=== PATIENT | female | born 1945 | race Caucasian/White ===

== ENCOUNTER 2016-12-20 11:14 | Emergency (ER) | payer MEDICARE, BC ==
--- NOTE | 2016-12-20 11:37 | EDM.PDOC ---
ED HPI RENAL/ - General Chief Complaint: Genitourinary Problem Stated Complaint: POSSIBLE UTI Time Seen by Provider: 12/20/16 11:36 Source of Information: Reports: Patient History Limitations: Reports: No limitations - History of Present Illness INITIAL COMMENTS - FREE TEXT/NARRATIVE: History of present illness: [71-year-old female presenting with acute onset of frequency and urgency with voiding. Patient indicates she feels she has a UTI as she has had in the past and would like to be tested for the same.] Review of systems: As per history of present illness and below otherwise all systems reviewed and negative. Past medical history: As per history of present illness and as reviewed below otherwise noncontributory. Surgical history: As per history of present illness and as reviewed below otherwise noncontributory. Social history: No reported history of drug or alcohol abuse. Family history: As per history of present illness and as reviewed below otherwise noncontributory. Physical exam: HEENT: Atraumatic, normocephalic, pupils reactive, negative for conjunctival pallor or scleral icterus, mucous membranes moist, throat clear, neck supple, nontender, trachea midline. Lungs: Clear to auscultation, breath sounds equal bilaterally, chest nontender. Heart: S1S2, regular, negative for clicks, rubs, or JVD. Abdomen: Soft, nondistended, nontender. Negative for masses or hepatosplenomegaly. Negative for costovertebral tenderness. Pelvis: Stable nontender. Genitourinary: Deferred. Rectal: Deferred. Extremities: Atraumatic, negative for cords or calf pain. Neurovascular unremarkable. Neuro: Awake, alert, oriented. Cranial nerves II through XII unremarkable. Cerebellum unremarkable. Motor and sensory unremarkable throughout. Exam nonfocal. Global assessment as benign save concerns as noted in the history of present illness. UA with nathalie bacteria and positive for UTI. Diagnostics: [UA] Therapeutics: [] Impression: [UTI] Plan: [Macrobid] Definitive disposition and diagnosis as appropriate pending reevaluation and review of above. - Related Data Allergies/ADRs: Allergies Allergy/AdvReac Type Severity Reaction Status Date / Time amoxicillin [Amoxicillin] Allergy Rash Verified 12/20/16 11:24 procaine HCl [From Novocain] Allergy Rash Verified 12/20/16 11:24 Sulfa (Sulfonamide Allergy Rash Verified 12/20/16 11:24 Antibiotics) Home Meds: Home Meds Celecoxib [CeleBREX] 1 tab PO DAILY 08/12/14 [History] metFORMIN [Glucophage XR] 1 tab PO BID 08/12/14 [History] Nitrofurantoin Monohyd/M-Cryst [Macrobid 100 mg Capsule] 100 mg PO BID #20 capsule 12/20/16 [Rx] Past Medical History HEENT History: Reports: Impaired vision Cardiovascular History: Reports: High cholesterol, Hypertension Respiratory History: Reports: None Gastrointestinal History: Reports: None 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, recurrent 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 Musculoskeletal History: Reports: Other (see below) Other Musculoskeletal History: Carpal Tunnel Neurological History: Reports: Headaches, chronic, Vertigo Psychiatric History: Reports: Anxiety, Depression Endocrine/Metabolic History: Reports: Diabetes, type II Hematologic History: Reports: Other (see below) Other Hematologic History: "high iron" Immunologic History: Reports: None Oncologic (Cancer) History: Reports: None Dermatologic History: Reports: None - Infectious Disease History Infectious Disease History: Reports: Chicken pox - Past Surgical History Head Surgeries/Procedures: Reports: None Female Surgical History: Reports: Hysterectomy Musculoskeletal Surgical History: Reports: Carpal tunnel Social & Family History - Family History Family Medical History: Noncontributory - Tobacco Use Smoking Status *Q: Never Smoker Years of Tobacco use: 15 Used Tobacco, but Quit: Yes Month Tobacco Last Used: 1978 Second Hand Smoke Exposure: No - Alcohol Use Days Per Week of Alcohol Use: 0 - Recreational Drug Use Recreational Drug Use: Yes Drug Use in Last 12 Months: No Recreational Drug Type: Reports: Marijuana/Hashish Recreational Drug Use Frequency: Not Used In Over 3 Months ED ROS GENERAL - Review of Systems Review Of Systems: See Below (The history of present illness) ED EXAM, RENAL/ - Physical Exam Exam: See Below (See history of present illness) Course - Vital Signs Last Recorded V/S: Last Vital Signs Temp 36.0 C 12/20/16 11:22 Pulse 65 12/20/16 11:22 Resp 16 12/20/16 11:22 BP 148/61 H 12/20/16 11:22 Pulse Ox 96 12/20/16 11:22 - Orders/Labs/Meds Labs: Laboratory Tests 12/20/16 Range/Units 11:29 Urine Color YELLOW Urine Appearance CLEAR Urine pH 5.5 (5.0-8.0) Ur Specific [place] 1.025 (1.001-1.035) Urine Protein NEGATIVE (NEGATIVE) mg/dL Urine Glucose (UA) 250 H (NEGATIVE) mg/dL Urine Ketones NEGATIVE (NEGATIVE) mg/dL Urine Occult Blood LARGE H (NEGATIVE) Urine Nitrite POSITIVE H (NEGATIVE) Urine Bilirubin NEGATIVE (NEGATIVE) Urine Urobilinogen 0.2 (<2.0) EU/dL Ur Leukocyte Esterase LARGE (NEGATIVE) Urine RBC 4-8 (0-2/HPF) Urine WBC 65-70 (0-5/HPF) Ur Epithelial Cells FEW (NONE-FEW) Urine Bacteria 4+ H (NEGATIVE) Urine Mucus LIGHT (NONE-MOD) Departure - Departure Time of Disposition: 12:52 Disposition: Home, Self-Care 01 Condition: good Clinical Impression: UTI, Urinary tract infectious disease Clinical Impression: (Ruled Out): Lower urinary tract infectious disease, UTI Prescriptions: Nitrofurantoin Monohyd/M-Cryst [Macrobid 100 mg Capsule] 100 mg PO BID #20 capsule Instructions: Urinary Tract Infection, Adult, [id number] Forms: ED Department Discharge Additional Instructions: The following information is given to patients seen in the emergency department who are being discharged to home. This information is to outline your options for follow-up care. We provide all patients seen in our emergency department with a follow-up referral. The need for follow-up, as well as the timing and circumstances, are variable depending upon the specifics of your emergency department visit. If you don't have a primary care physician on staff, we will provide you with a referral. We always advise you to contact your personal physician following an emergency department visit to inform them of the circumstance of the visit and for follow-up with them and/or the need for any referrals to a consulting specialist. The emergency department will also refer you to a specialist when appropriate. This referral assures that you have the opportunity for follow-up care with a specialist. All of these measure are taken in an effort to provide you with optimal care, which includes your follow-up. Under all circumstances we always encourage you to contact your private physician who remains a resource for coordinating your care. When calling for follow-up care, please make the office aware that this follow-up is from your recent emergency room visit. If for any reason you are refused follow-up, please contact the [facility] Emergency Department at and asked to speak to the emergency department charge nurse. Take medication as directed Followup with primary care provider in one to 2 days Return to ED as needed as discussed
[2016-12-20 13:38] VITALS: BP 116/69
== END 2016-12-20 13:30 | disposition home or self-care (01) ==
LOC: MW.ED 11:14
DX: N39.0 Urinary tract infection, site not specified (principal); E11.9 Type 2 diabetes mellitus without complications; F41.9 Anxiety disorder, unspecified; F32.9 Major depressive disorder, single episode, unspecified; Z90.710 Acquired absence of both cervix and uterus; Z98.890 Other specified postprocedural states; Z79.899 Other long term (current) drug therapy; Z88.1 Allergy status to other antibiotic agents; Z88.2 Allergy status to sulfonamides; Z88.8 Allergy status to other drugs, medicaments and biological substances
CPT/HCPCS: 81001; 99283

== ENCOUNTER 2017-05-12 07:58 | Emergency (ER) | payer MEDICARE, BC ==
--- NOTE | 2017-05-12 08:29 | EDM.PDOC ---
ED HPI GENERAL MEDICAL PROBLEM - General Chief Complaint: Genitourinary Problem Stated Complaint: POSSIBLE UTI Time Seen by Provider: 05/12/17 08:15 - History of Present Illness INITIAL COMMENTS - FREE TEXT/NARRATIVE: HISTORY AND PHYSICAL: History of present illness: This is a 71-year-old female presenting to the emergency department complaining of urinary issues. She tells me for the past month now, she has been experiencing urinary urgency, intermittent burning on urination. She tells me that this past night she began to feel the chills. She denies any flank pain she denies any hematuria. She tells me that she has a history of multiple UTIs which have responded well to antibiotics. Review of systems: As per history of present illness and below otherwise all systems reviewed and negative. Past medical history: As per history of present illness and as reviewed below otherwise noncontributory. Surgical history: As per history of present illness and as reviewed below otherwise noncontributory. Social history: No reported history of drug or alcohol abuse. Family history: As per history of present illness and as reviewed below otherwise noncontributory. Physical exam: HEENT: Atraumatic, normocephalic, pupils reactive, negative for conjunctival pallor or scleral icterus, mucous membranes moist, throat clear, neck supple, nontender, trachea midline. Lungs: Clear to auscultation, breath sounds equal bilaterally, chest nontender. Heart: S1S2, regular, negative for clicks, rubs, or JVD. Abdomen: Soft, nondistended, nontender. Negative for masses or hepatosplenomegaly. Negative for costovertebral tenderness. Pelvis: Stable nontender. Genitourinary: Deferred. Rectal: Deferred. Extremities: Atraumatic, negative for cords or calf pain. Neurovascular unremarkable. Neuro: Awake, alert, oriented. Cranial nerves II through XII unremarkable. Cerebellum unremarkable. Motor and sensory unremarkable throughout. Exam nonfocal. Diagnostics: Urinalysis, urine culture Therapeutics: None Impression: Urinary tract infection Plan: Macrobid 100 mg by mouth twice a day 10 days #20 tabs. Patient is advised to follow-up with his primary care provider. - Related Data Allergies Allergy/AdvReac Type Severity Reaction Status Date / Time amoxicillin [Amoxicillin] Allergy Rash Verified 05/12/17 08:17 procaine HCl [From Novocain] Allergy Rash Verified 05/12/17 08:17 Sulfa (Sulfonamide Allergy Rash Verified 05/12/17 08:17 Antibiotics) Home Meds: Home Meds Celecoxib [CeleBREX] 1 tab PO DAILY 08/12/14 [History] metFORMIN [Glucophage XR] 1 tab PO BID 08/12/14 [History] Nitrofurantoin Monohyd/M-Cryst [Macrobid 100 mg Capsule] 100 mg PO BID #20 capsule 12/20/16 [Rx] Nitrofurantoin Monohyd/M-Cryst [Macrobid 100 mg Capsule] 100 mg PO BID 10 Days # 20 capsule 05/12/17 [Rx] Past Medical History HEENT History: Reports: Impaired Vision Cardiovascular History: Reports: High Cholesterol, Hypertension Respiratory History: Reports: None Gastrointestinal History: Reports: None 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, Recurrent 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 Musculoskeletal History: Reports: Other (See Below) Other Musculoskeletal History: Carpal Tunnel Neurological History: Reports: Headaches, Chronic, Vertigo Psychiatric History: Reports: Anxiety, Depression Endocrine/Metabolic History: Reports: Diabetes, Type II Hematologic History: Reports: Other (See Below) Other Hematologic History: "high iron" Immunologic History: Reports: None Oncologic (Cancer) History: Reports: None Dermatologic History: Reports: None - Infectious Disease History Infectious Disease History: Reports: MRSA - Past Surgical History Head Surgeries/Procedures: Reports: None Musculoskeletal Surgical History: Reports: Carpal Tunnel Social & Family History - Family History Family Medical History: Noncontributory - Tobacco Use Smoking Status *Q: Never Smoker Years of Tobacco use: 15 Used Tobacco, but Quit: Yes Month Tobacco Last Used: 1978 Second Hand Smoke Exposure: No - Alcohol Use Days Per Week of Alcohol Use: 0 - Recreational Drug Use Recreational Drug Use: No Drug Use in Last 12 Months: No Recreational Drug Type: Reports: Marijuana/Hashish Recreational Drug Use Frequency: Not Used In Over 3 Months ED ROS GENERAL - Review of Systems Review Of Systems: See Below (see dictation) ED EXAM, RENAL/ - Physical Exam Exam: See Below (See dictation) Course - Vital Signs Text/Narrative:: Patient was complaining of urinary issues, with a history of multiple UTIs. On urinalysis is found to have positive nitrites and WBCs indicating a possible urinary tract infection. Patient was ultimately discharged home on Macrobid for 10 days. Patient is advised to follow-up with primary care provider. Last Recorded V/S: Last Vital Signs Temp 97.0 C H 05/12/17 08:51 Pulse 64 05/12/17 08:51 Resp 20 05/12/17 08:51 BP 127/70 05/12/17 08:51 Pulse Ox 95 05/12/17 08:51 - Orders/Labs/Meds Orders: Active Orders 24 hr Category Date Time Status CULTURE URINE [RM] Stat Lab 05/12/17 08:03 Received Labs: Laboratory Tests 05/12/17 Range/Units 08:03 Urine Color YELLOW Urine Appearance SLT CLOUDY Urine pH 5.5 (5.0-8.0) Ur Specific [place] 1.020 (1.001-1.035) Urine Protein NEGATIVE (NEGATIVE) mg/dL Urine Glucose (UA) 250 H (NEGATIVE) mg/dL Urine Ketones NEGATIVE (NEGATIVE) mg/dL Urine Occult Blood LARGE H (NEGATIVE) Urine Nitrite POSITIVE H (NEGATIVE) Urine Bilirubin NEGATIVE (NEGATIVE) Urine Urobilinogen 0.2 (<2.0) EU/dL Ur Leukocyte Esterase LARGE (NEGATIVE) Urine RBC 6-10 (0-2/HPF) Urine WBC 45-50 (0-5/HPF) Ur Epithelial Cells FEW (NONE-FEW) Amorphous Sediment FEW (NEGATIVE) Urine Bacteria 2+ H (NEGATIVE) Urine Mucus FEW (NONE-MOD) Departure - Departure Time of Disposition: 08:36 Disposition: Home, Self-Care 01 Condition: Good Clinical Impression: Urinary tract infection - Discharge Information Prescriptions: Nitrofurantoin Monohyd/M-Cryst [Macrobid 100 mg Capsule] 100 mg PO BID 10 Days # 20 capsule Instructions: Urinary Tract Infection, Adult, [id number] Referrals: Seble Schwab NP [Nurse Practitioner] - Forms: ED Department Discharge
[2017-05-12 08:53] VITALS: BP 127/70
== END 2017-05-12 08:51 | disposition home or self-care (01) ==
LOC: MW.ED 07:58
DX: N39.0 Urinary tract infection, site not specified (principal); E78.00 Pure hypercholesterolemia, unspecified; I10 Essential (primary) hypertension; E11.9 Type 2 diabetes mellitus without complications; Z88.1 Allergy status to other antibiotic agents; Z88.2 Allergy status to sulfonamides; Z79.899 Other long term (current) drug therapy; Z79.84 Long term (current) use of oral hypoglycemic drugs
CPT/HCPCS: 81001; 87086; 87088; 87186; 99282; 99283

== ENCOUNTER 2017-12-01 08:31 | Emergency (ER) | payer BC, MEDICARE ==
--- NOTE | 2017-12-01 09:00 | EDM.PDOC ---
ED HPI GENERAL MEDICAL PROBLEM - General Chief Complaint: Genitourinary Problem Stated Complaint: ABDOMINAL PAIN Time Seen by Provider: 12/01/17 08:53 - History of Present Illness INITIAL COMMENTS - FREE TEXT/NARRATIVE: HISTORY AND PHYSICAL: History of present illness: Patient is a 72-year-old white female history non-insulin dependent diabetes who presents with concern of urinary tract infection she states she's had some frequency and discomfort urination she's had this problem intermittently she reports allergies to sulfa she denies fever chills nausea vomiting back pain or other concern Review of systems: As per history of present illness and below otherwise all systems reviewed and negative. Past medical history: As per history of present illness and as reviewed below otherwise noncontributory. Surgical history: As per history of present illness and as reviewed below otherwise noncontributory. Social history: No reported history of drug or alcohol abuse. Family history: As per history of present illness and as reviewed below otherwise noncontributory. Physical exam: HEENT: Atraumatic, normocephalic, pupils reactive, negative for conjunctival pallor or scleral icterus, mucous membranes moist, throat clear, neck supple, nontender, trachea midline. Lungs: Clear to auscultation, breath sounds equal bilaterally, chest nontender. Heart: S1S2, regular, negative for clicks, rubs, or JVD. Abdomen: Soft, nondistended, nontender. Negative for masses or hepatosplenomegaly. Negative for costovertebral tenderness. Pelvis: Stable nontender. Genitourinary: Deferred. Rectal: Deferred. Extremities: Atraumatic, negative for cords or calf pain. Neurovascular unremarkable. Neuro: Awake, alert, oriented. Cranial nerves II through XII unremarkable. Cerebellum unremarkable. Motor and sensory unremarkable throughout. Exam nonfocal. Diagnostics: UA urine culture and sensitivity Therapeutics: None Impression: # 1 urinary tract infection #2 history of diabetes Definitive disposition and diagnosis as appropriate pending reevaluation and review of above. - Related Data Allergies Allergy/AdvReac Type Severity Reaction Status Date / Time amoxicillin [Amoxicillin] Allergy Rash Verified 05/12/17 08:17 procaine HCl [From Novocain] Allergy Rash Verified 05/12/17 08:17 Sulfa (Sulfonamide Allergy Rash Verified 05/12/17 08:17 Antibiotics) Home Meds: Home Meds Celecoxib [CeleBREX] 1 tab PO DAILY 08/12/14 [History] metFORMIN [Glucophage XR] 1 tab PO BID 08/12/14 [History] Nitrofurantoin Monohyd/M-Cryst [Macrobid 100 mg Capsule] 100 mg PO BID #20 capsule 12/20/16 [Rx] Nitrofurantoin Monohyd/M-Cryst [Macrobid 100 mg Capsule] 100 mg PO BID 10 Days # 20 capsule 05/12/17 [Rx] Past Medical History HEENT History: Reports: Impaired Vision Cardiovascular History: Reports: High Cholesterol, Hypertension Respiratory History: Reports: None Gastrointestinal History: Reports: None 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, Recurrent 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 Musculoskeletal History: Reports: Other (See Below) Other Musculoskeletal History: Carpal Tunnel Neurological History: Reports: Headaches, Chronic, Vertigo Psychiatric History: Reports: Anxiety, Depression Endocrine/Metabolic History: Reports: Diabetes, Type II Hematologic History: Reports: Other (See Below) Other Hematologic History: "high iron" Immunologic History: Reports: None Oncologic (Cancer) History: Reports: None Dermatologic History: Reports: None - Infectious Disease History Infectious Disease History: Reports: MRSA - Past Surgical History Head Surgeries/Procedures: Reports: None Musculoskeletal Surgical History: Reports: Carpal Tunnel Social & Family History - Family History Family Medical History: Noncontributory - Tobacco Use Smoking Status *Q: Never Smoker Years of Tobacco use: 15 Used Tobacco, but Quit: Yes Month/Year Tobacco Last Used: 1978 Second Hand Smoke Exposure: No - Alcohol Use Days Per Week of Alcohol Use: 0 - Recreational Drug Use Recreational Drug Use: No Drug Use in Last 12 Months: No Recreational Drug Type: Reports: Marijuana/Hashish Recreational Drug Use Frequency: Not Used In Over 3 Months ED ROS GENERAL - Review of Systems Review Of Systems: ROS reveals no pertinent complaints other than HPI. ED EXAM, GENERAL - Physical Exam Exam: See Below (The dictation) Departure - Departure Time of Disposition: 08:59 Disposition: Home, Self-Care 01 Condition: Good Clinical Impression: Urinary tract infection - Discharge Information Referrals: Seble Schwab WATERPROOFER [Primary Care Provider] - Additional Instructions: The following information is given to patients seen in the emergency department who are being discharged to home. This information is to outline your options for follow-up care. We provide all patients seen in our emergency department with a follow-up referral. The need for follow-up, as well as the timing and circumstances, are variable depending upon the specifics of your emergency department visit. If you don't have a primary care physician on staff, we will provide you with a referral. We always advise you to contact your personal physician following an emergency department visit to inform them of the circumstance of the visit and for follow-up with them and/or the need for any referrals to a consulting specialist. The emergency department will also refer you to a specialist when appropriate. This referral assures that you have the opportunity for followup care with a specialist. All of these measure are taken in an effort to provide you with optimal care, which includes your followup. Under all circumstances we always encourage you to contact your private physician who remains a resource for coordinating your care. When calling for followup care, please make the office aware that this follow-up is from your recent emergency room visit. If for any reason you are refused follow-up, please contact the [facility] emergency department at and asked to speak to the emergency department charge nurse. Cipro Pyridium as prescribed follow-up primary medical doctor 1-2 days return as needed as discussed
[2017-12-01 09:12] VITALS: BP 176/83
== END 2017-12-01 09:30 | disposition home or self-care (01) ==
LOC: MW.ED 08:31
DX: N39.0 Urinary tract infection, site not specified (principal); E78.00 Pure hypercholesterolemia, unspecified; I10 Essential (primary) hypertension; E11.9 Type 2 diabetes mellitus without complications; Z88.1 Allergy status to other antibiotic agents; Z88.2 Allergy status to sulfonamides; Z88.8 Allergy status to other drugs, medicaments and biological substances; Z79.899 Other long term (current) drug therapy; Z79.84 Long term (current) use of oral hypoglycemic drugs; Z87.891 Personal history of nicotine dependence
CPT/HCPCS: 81001; 99282; 99283

== ENCOUNTER 2018-05-17 21:34 | Emergency (ER) | payer MEDICARE, BC ==
--- NOTE | 2018-05-17 21:42 | EDM.PDOC ---
ED HPI GENERAL MEDICAL PROBLEM - General Stated Complaint: BACK PAIN Time Seen by Provider: 05/17/18 21:42 Source of Information: Reports: Patient History Limitations: Reports: No Limitations - History of Present Illness INITIAL COMMENTS - FREE TEXT/NARRATIVE: HISTORY AND PHYSICAL: History of present illness: 72-year-old female presenting with chief complaint of thoracic and lumbar back pain 2 weeks as well as urinary urgency with past medical history of type 2 diabetes, hypertension, and hyperlipidemia. Patient states for the past 2 weeks she has been having increasing thoracic and lower back pain. States that the pain is shooting and radiates under her right rib cage as well as down bilateral legs into her knees. She does have some burning with this. Pain is constant throughout the day but is somewhat better after Celebrex and after she is up and moving. Left is worse than right. She also reports some urinary urgency. Does have a history of urinary tract infection. Currently does not see a primary care provider but has seen Jennifer Schwab in the past. Currently denies any chest pain, palpitations, shortness of breath, syncopal episodes, or focal neurologic deficits. Daughter does report she has been traveling for on and off for the past 4 weeks. She denies any calf pain or hemoptsis or history of DVT. On exam patient is tender to palpation along T10-T12 as well as L5-S1. No overt CVA tenderness. No other abnormalities. CBC was unremarkable. Urinalysis positive for acute cystitis Thoracic film was negative for acute findings. Lumbar film was negative for acute findings but there was degenerative changes involving L4 vertebral body with grade 1 anterolisthesis L4 over L5. Recommended nonurgent MRI in the future. Review of systems: As per history of present illness and below otherwise all systems reviewed and negative. Past medical history: As per history of present illness and as reviewed below otherwise noncontributory. Surgical history: As per history of present illness and as reviewed below otherwise noncontributory. Social history: No reported history of drug or alcohol abuse. Family history: As per history of present illness and as reviewed below otherwise noncontributory. Physical exam: HEENT: Atraumatic, normocephalic, pupils reactive, negative for conjunctival pallor or scleral icterus, mucous membranes moist, throat clear, neck supple, nontender, trachea midline. Lungs: Clear to auscultation, breath sounds equal bilaterally, chest nontender. Heart: S1S2, regular, negative for clicks, rubs, or JVD. Abdomen: Soft, nondistended, nontender. Negative for masses or hepatosplenomegaly. Negative for costovertebral tenderness. Pelvis: Stable nontender. Genitourinary: Deferred. Rectal: Deferred. Extremities: Atraumatic, negative for cords or calf pain. Neurovascular unremarkable. Neuro: Awake, alert, oriented. Cranial nerves II through XII unremarkable. Cerebellum unremarkable. Motor and sensory unremarkable throughout. Exam nonfocal. Diagnostics: CBC, CMP, UA/UC, thoracic, lumbar films Therapeutics: Macrobid 100 mg by mouth twice a day 5 days Flexeril 10 mg by mouth 3 times a day when necessary muscle spasms #15 Impression: Thoracic pain Lumbar back pain Urinary urgency Plan: Please see above H&P CBC, CMP, thoracic, and lumbar films were unremarkable for acute pathology. Urinalysis was positive for urinary tract infection. Patient was given a perscription for Macrobid and instructed to follow up with primary care provider. I also gave the patient a prescription for Flexeril for suspected muscle spasms causing her back pain. She has been traveling for the past 4 weeks and most likely has had some spasming secondary to sitting in one place. She was instructed to return to emergency department if she had a new or worsening symptoms. Definitive disposition and diagnosis as appropriate pending reevaluation and review of above. back pain Pain Score (Numeric/FACES): 8 - Related Data Allergies Allergy/AdvReac Type Severity Reaction Status Date / Time amoxicillin [Amoxicillin] Allergy Rash Verified 05/17/18 21:45 procaine HCl [From Novocain] Allergy Rash Verified 05/17/18 21:45 Sulfa (Sulfonamide Allergy Rash Verified 05/17/18 21:45 Antibiotics) Home Meds: Home Meds Celecoxib [CeleBREX] 200 mg PO DAILY 08/12/14 [History] metFORMIN [Glucophage XR] 1 tab PO BID 08/12/14 [History] atorvaSTATin [Lipitor] 10 mg PO DAILY 12/01/17 [History] Aspirin [[place] Aspirin] 81 mg PO DAILY 05/17/18 [History] glipiZIDE [Glucotrol] 10 mg PO DAILY 05/17/18 [History] Past Medical History HEENT History: Reports: Impaired Vision Cardiovascular History: Reports: High Cholesterol, Hypertension Respiratory History: Reports: None Gastrointestinal History: Reports: None 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, 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 Musculoskeletal History: Reports: Other (See Below) Other Musculoskeletal History: Carpal Tunnel Neurological History: Reports: Headaches, Chronic, Vertigo Psychiatric History: Reports: Anxiety, Depression Endocrine/Metabolic History: Reports: Diabetes, Type II Hematologic History: Reports: Other (See Below) Other Hematologic History: "high iron" Immunologic History: Reports: None Oncologic (Cancer) History: Reports: None Dermatologic History: Reports: None - Infectious Disease History Infectious Disease History: Reports: MRSA - Past Surgical History Head Surgeries/Procedures: Reports: None Musculoskeletal Surgical History: Reports: Carpal Tunnel Social & Family History - Family History Family Medical History: Noncontributory ED ROS GENERAL - Review of Systems Review Of Systems: ROS reveals no pertinent complaints other than HPI. ED EXAM, GENERAL - Physical Exam Exam: See Below Course - Vital Signs Last Recorded V/S: Last Vital Signs Temp 96.5 F 05/17/18 22:36 Pulse 85 05/17/18 22:36 Resp 15 05/17/18 22:36 BP 181/87 H 05/17/18 22:36 Pulse Ox 96 05/17/18 22:36 - Orders/Labs/Meds Orders: Active Orders 24 hr Category Date Time Status Lumbar Spine 2 or 3V [CR] Stat Exams 05/17/18 22:03 Taken Thoracic Spine 3V [CR] Stat Exams 05/17/18 22:03 Taken CULTURE URINE [RM] Stat Lab 05/17/18 22:05 Received UA W/MICROSCOPIC [URIN] Stat Lab 05/17/18 22:05 Ordered Labs: Laboratory Tests 05/17/18 05/17/18 05/17/18 Range/Units 22:05 22:33 22:33 WBC 9.46 (4.0-11.0) K/uL RBC 4.65 (4.30-5.90) M/uL Hgb 14.7 (12.0-16.0) g/dL Hct 43.7 (36.0-46.0) % MCV 94.0 (80.0-98.0) fL MCH 31.6 (27.0-32.0) pg MCHC 33.6 (31.0-37.0) g/dL RDW Std Deviation 43.0 (28.0-62.0) fl RDW Coeff of Alfonzo 13 (11.0-15.0) % Plt Count 210 (150-400) K/uL MPV 8.90 (7.40-12.00) fL Neut % (Auto) 69.7 (48.0-80.0) % Lymph % (Auto) 18.0 (16.0-40.0) % Carson % (Auto) 9.4 (0.0-15.0) % Eos % (Auto) 2.6 (0.0-7.0) % Baso % (Auto) 0.3 (0.0-1.5) % Neut # (Auto) 6.6 H (1.4-5.7) K/uL Lymph # (Auto) 1.7 (0.6-2.4) K/uL [place] # (Auto) 0.9 H (0.0-0.8) K/uL Eos # (Auto) 0.3 (0.0-0.7) K/uL Baso # (Auto) 0.0 (0.0-0.1) K/uL Nucleated RBC % 0.0 /100WBC Nucleated RBCs # 0 K/uL Sodium 137 (136-145) mmol/L Potassium 4.1 (3.5-5.1) mmol/L Chloride 102 (98-107) mmol/L Carbon Dioxide 30.5 (21.0-32.0) mmol/L BUN 22 H (7.0-18.0) mg/dL Creatinine 1.2 H (0.6-1.0) mg/dL Est Cr Clr Drug Dosing TNP Estimated GFR (MDRD) 43.9 ml/min Glucose 136 H (74-106) mg/dL Calcium 10.1 (8.5-10.1) mg/dL Total Bilirubin 0.6 (0.2-1.0) mg/dL AST 24 (15-37) IU/L ALT 34 (14-63) IU/L Alkaline Phosphatase 163 H (46-116) U/L Total Protein 8.1 (6.4-8.2) g/dL Albumin 3.6 (3.4-5.0) g/dL Globulin 4.5 H (2.0-3.5) g/dL Albumin/Globulin Ratio 0.8 L (1.3-2.8) Urine Color YELLOW Urine Appearance CLEAR Urine pH 6.0 (5.0-8.0) Ur Specific [place] 1.010 (1.001-1.035) Urine Protein NEGATIVE (NEGATIVE) mg/dL Urine Glucose (UA) NEGATIVE (NEGATIVE) mg/dL Urine Ketones NEGATIVE (NEGATIVE) mg/dL Urine Occult Blood MODERATE (NEGATIVE) Urine Nitrite NEGATIVE (NEGATIVE) Urine Bilirubin NEGATIVE (NEGATIVE) Urine Urobilinogen 0.2 (<2.0) EU/dL Ur Leukocyte Esterase MODERATE (NEGATIVE) Urine RBC 2-4 (0-2/HPF) Urine WBC 20-25 (0-5/HPF) Ur Epithelial Cells FEW (NONE-FEW) Urine Bacteria FEW (NEGATIVE) Urine Mucus FEW (NONE-MOD) Departure - Departure Time of Disposition: 23:25 Disposition: Home, Self-Care 01 Condition: Good Clinical Impression: Acute cystitis without hematuria, Muscle spasm of back Back pain Qualifiers: Back pain location: low back pain Chronicity: acute Back pain laterality: left Sciatica presence: without sciatica Qualified Code(s): M54.5 - Low back pain - Discharge Information Referrals: PCP,None [Primary Care Provider] - Additional Instructions: My general discharge The following information is given to patients seen in the emergency department who are being discharged to home. This information is to outline your options for follow-up care. We provide all patients seen in our emergency department with a follow-up referral. The need for follow-up, as well as the timing and circumstances, are variable depending upon the specifics of your emergency department visit. If you don't have a primary care physician on staff, we will provide you with a referral. We always advise you to contact your personal physician following an emergency department visit to inform them of the circumstance of the visit and for follow-up with them and/or the need for any referrals to a consulting specialist. The emergency department will also refer you to a specialist when appropriate. This referral assures that you have the opportunity for follow-up care with a specialist. All of these measure are taken in an effort to provide you with optimal care, which includes your follow-up. Under all circumstances we always encourage you to contact your private physician who remains a resource for coordinating your care. When calling for follow-up care, please make the office aware that this follow-up is from your recent emergency room visit. If for any reason you are refused follow-up, please contact the [facility] Emergency Department at and asked to speak to the emergency department charge nurse. [facility] [address] [place] [phone] Please call number above and schedule a follow-up appointment with the residency clinic as we discussed. Be sure to tell them that you were seen in the emergency department and they wish for you to be seen as soon as possible. Take medication as prescribed. Return to emergency department if any new or worsening symptoms. - My Orders Last 24 Hours: My Active Orders 05/17/18 22:03 Lumbar Spine 2 or 3V [CR] Stat Thoracic Spine 3V [CR] Stat 05/17/18 22:05 CULTURE URINE [RM] Stat UA W/MICROSCOPIC [URIN] Stat - Assessment/Plan Last 24 Hours: My Active Orders 05/17/18 22:03 Lumbar Spine 2 or 3V [CR] Stat Thoracic Spine 3V [CR] Stat 05/17/18 22:05 CULTURE URINE [RM] Stat UA W/MICROSCOPIC [URIN] Stat
[2018-05-17 22:58] LABS: CHLORIDE,CL 102 mmol/L (98-107); SODIUM,NA 137 mmol/L (136-145)
[2018-05-17 23:38] VITALS: BP 158/82
--- NOTE | 2018-05-18 19:41 | CR ---
EXAM DATE: 05/17/18 PATIENT'S AGE: 72 Patient: MIMI BLANKENSHIP Facility: [place], [place] Site . Site : 1945 Study: XRay Spine Thoracic [id number]/30/2018 10:30:39 PM Ordering Physician: Rasheed Chaparro Final Report: INDICATION: pain, no injury TECHNIQUE: Thoracic spine 3 views. COMPARISON: None. FINDINGS: Bones: Alignment is normal. No fractures or bone lesions. Joint spaces: Disc spaces are normal. Facet joints are normal. Soft tissues: Negative. IMPRESSION: Negative thoracic spine. Dictated by: Heber Vail MD @ 05/17/2018 22:36:24 (Electronic Signature) Report Signed by Proxy. [facility]
--- NOTE | 2018-05-18 19:42 | CR ---
EXAM DATE: 05/17/18 PATIENT'S AGE: 72 Patient: MIMI BLANKENSHIP Facility: [place], [place] Site . Site : 1945 Study: XRay Spine Lumbar [id number]/30/2018 10:30:58 PM Ordering Physician: Rasheed Chaparro Final Report: INDICATION: Pain, no history of trauma TECHNIQUE: Lumbar spine 3 view. COMPARISON: None FINDINGS: Bones: Grade 1 anterolisthesis L4 over L5. Appearance of destructive changes involving the L4 vertebral body. Joints: Disc space narrowing L5-S1. Soft tissues: Unremarkable. IMPRESSION: Appearance of destructive changes involving the L4 vertebral body with grade 1 anterolisthesis L4 over L5. MRI would be helpful to better characterize on a nonemergent basis. Dictated by Heber Vail MD @ 05/17/2018 10:35:39 PM Dictated by: Heber Vail MD @ 05/17/2018 22:35:45 (Electronic Signature) Report Signed by Proxy. [facility]
== END 2018-05-17 23:30 | disposition home or self-care (01) ==
LOC: MW.ED 21:34
DX: N30.00 Acute cystitis without hematuria (principal); M62.830 Muscle spasm of back; M54.5 Low back pain; M54.6 Pain in thoracic spine; E78.00 Pure hypercholesterolemia, unspecified; I10 Essential (primary) hypertension; F41.9 Anxiety disorder, unspecified; F32.9 Major depressive disorder, single episode, unspecified; E11.9 Type 2 diabetes mellitus without complications; R39.15 Urgency of urination; Z88.1 Allergy status to other antibiotic agents; Z88.2 Allergy status to sulfonamides; Z88.8 Allergy status to other drugs, medicaments and biological substances; Z79.82 Long term (current) use of aspirin; Z79.899 Other long term (current) drug therapy; Z79.84 Long term (current) use of oral hypoglycemic drugs
CPT/HCPCS: 36415; 72072; 72072-26; 72100; 72100-26; 80053; 81001; 85025; 87086; 99283

== ENCOUNTER 2018-06-03 15:04 | Emergency (ER) | payer BC, MEDICARE ==
[2018-06-03] MEDS ORDERED: Sodium Chloride 0.9% 500 ML IV ONE (15:29)
[2018-06-03] MEDS ORDERED: Sodium Chloride 0.9% 2.5 ML Syringe FLUSH PRN (15:29)
[2018-06-03] MEDS ORDERED: Ondansetron 4 MG/2 ML SDV IVPUSH ONE (15:29)
[2018-06-03] MEDS ORDERED: Hyoscyamine 0.125 MG Tab.SL SL ONE (15:29)
[2018-06-03] MEDS ORDERED: Sodium Chloride 0.9% 10 ML Syringe FLUSH PRN (15:29)
--- NOTE | 2018-06-03 15:30 | EDM.PDOC ---
ED HPI GENERAL MEDICAL PROBLEM - General Chief Complaint: General Stated Complaint: BLADDER ISSUES Time Seen by Provider: 06/03/18 15:17 Source of Information: Reports: Patient History Limitations: Reports: No Limitations - History of Present Illness INITIAL COMMENTS - FREE TEXT/NARRATIVE: History of present illness: []Patient's had 2 week history of right upper quadrant pain she has gallbladder issues. She states she's had fevers, chills and nausea. No vomiting or diarrhea. Review of systems: As per history of present illness and below otherwise all systems reviewed and negative. Past medical history: As per history of present illness and as reviewed below otherwise noncontributory. Surgical history: As per history of present illness and as reviewed below otherwise noncontributory. Social history: No reported history of drug or alcohol abuse. Family history: As per history of present illness and as reviewed below otherwise noncontributory. Physical exam: General: Well developed, well nourished in NAD HEENT: Atraumatic, normocephalic, pupils reactive, negative for conjunctival pallor or scleral icterus, mucous membranes moist, throat clear, neck supple, nontender, trachea midline. Lungs: Clear to auscultation, breath sounds equal bilaterally, chest nontender. Heart: S1S2, regular, negative for clicks, rubs, or JVD. Abdomen: Soft, nondistended, mild tenderness right upper quadrant no rebound or guarding. Negative for masses or hepatosplenomegaly. Negative for costovertebral tenderness. Pelvis: Stable nontender. Genitourinary: Deferred. Rectal: Deferred. Extremities: Atraumatic, negative for cords or calf pain. Neurovascular unremarkable. Neuro: Awake, alert, oriented. Cranial nerves II through XII unremarkable. Cerebellum unremarkable. Motor and sensory unremarkable throughout. Exam nonfocal. Skin:warm and dry Diagnostics: CBC, chemistry, lipase, UA, abdominal ultrasound,, UTI, CBC and LFTs were elevated, gallbladder was negative, fatty liver Therapeutics: She received hyoscyamine and Zofran and Levaquin ED Course: I consulted Dr. Fregoso regarding her abnormal labs and this is likely her UTI causing sepsis affecting her liver Impression: Pyelonephritis Prescriptions: Levaquin Plan: Increase fluids and take meds as directed follow-up with primary care return if symptoms worsen or change. Definitive disposition and diagnosis as appropriate pending reevaluation and review of above. right sdie pain Pain Score (Numeric/FACES): 7 - Related Data Allergies Allergy/AdvReac Type Severity Reaction Status Date / Time amoxicillin [Amoxicillin] Allergy Rash Verified 05/17/18 21:45 procaine HCl [From Novocain] Allergy Rash Verified 05/17/18 21:45 Sulfa (Sulfonamide Allergy Rash Verified 05/17/18 21:45 Antibiotics) Home Meds: Home Meds Celecoxib [CeleBREX] 200 mg PO DAILY 08/12/14 [History] metFORMIN [Glucophage XR] 1 tab PO BID 08/12/14 [History] atorvaSTATin [Lipitor] 10 mg PO DAILY 12/01/17 [History] Aspirin [[place] Aspirin] 81 mg PO DAILY 05/17/18 [History] glipiZIDE [Glucotrol] 10 mg PO DAILY 05/17/18 [History] levoFLOXacin [Levaquin] 500 mg PO DAILY #7 tab 06/03/18 [Rx] Past Medical History HEENT History: Reports: Impaired Vision Cardiovascular History: Reports: High Cholesterol, Hypertension Respiratory History: Reports: None Gastrointestinal History: Reports: None 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, 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 Musculoskeletal History: Reports: Other (See Below) Other Musculoskeletal History: Carpal Tunnel Neurological History: Reports: Headaches, Chronic, Vertigo Psychiatric History: Reports: Anxiety, Depression Endocrine/Metabolic History: Reports: Diabetes, Type II Hematologic History: Reports: Other (See Below) Other Hematologic History: "high iron" Immunologic History: Reports: None Oncologic (Cancer) History: Reports: None Dermatologic History: Reports: None - Infectious Disease History Infectious Disease History: Reports: MRSA - Past Surgical History Head Surgeries/Procedures: Reports: None Musculoskeletal Surgical History: Reports: Carpal Tunnel Social & Family History - Family History Family Medical History: Noncontributory - Caffeine Use Caffeine Use: Reports: None ED ROS GENERAL - Review of Systems Review Of Systems: ROS reveals no pertinent complaints other than HPI. (See history of present illness) ED EXAM, GENERAL - Physical Exam Exam: See Below (See history of present illness) Course - Vital Signs Last Recorded V/S: Last Vital Signs Temp 97.2 F 06/03/18 15:13 Pulse 107 H 06/03/18 15:13 Resp 18 06/03/18 15:13 BP 150/105 H 06/03/18 15:13 Pulse Ox 96 06/03/18 15:13 - Orders/Labs/Meds Orders: Active Orders 24 hr Category Date Time Status Abdomen Ltd [US] Stat Exams 06/03/18 15:32 Taken Sodium Chloride 0.9% [Saline Flush] Med 06/03/18 15:29 Active 10 ml FLUSH ASDIRECTED PRN Sodium Chloride 0.9% [Saline Flush] Med 06/03/18 15:29 Active 2.5 ml FLUSH ASDIRECTED PRN Saline Lock Insert [OM.PC] Stat Oth 06/03/18 15:29 Ordered Medication Orders Sodium Chloride (Saline Flush) 10 ml FLUSH ASDIRECTED PRN PRN Reason: Keep Vein Open Sodium Chloride (Saline Flush) 2.5 ml FLUSH ASDIRECTED PRN PRN Reason: Keep Vein Open Labs: Laboratory Tests 06/03/18 06/03/18 06/03/18 Range/Units 15:43 15:43 15:43 WBC 12.19 H (4.0-11.0) K/uL RBC 5.45 (4.30-5.90) M/uL Hgb 17.2 H (12.0-16.0) g/dL Hct 50.4 H (36.0-46.0) % MCV 92.5 (80.0-98.0) fL MCH 31.6 (27.0-32.0) pg MCHC 34.1 (31.0-37.0) g/dL RDW Std Deviation 42.7 (28.0-62.0) fl RDW Coeff of Alfonzo 13 (11.0-15.0) % Plt Count 217 (150-400) K/uL MPV 9.60 (7.40-12.00) fL Add Manual Diff YES Neutrophils % (Manual) 67 (48.0-80.0) % Band Neutrophils % 4 % Lymphocytes % (Manual) 20 (16.0-40.0) % Monocytes % (Manual) 7 (0.0-15.0) % Eosinophils % (Manual) 1 (0.0-7.0) % Basophils % (Manual) 1 (0.0-1.5) % Nucleated RBC % 0.0 /100WBC Absolute Seg Neuts 8.2 H (1.4-5.7) Band Neutrophils # 0.5 Lymphocytes # (Manual) 2.4 (0.6-2.4) Monocytes # (Manual) 0.9 H (0.0-0.8) Eosinophils # (Manual) 0.1 (0.0-0.7) Basophils # (Manual) 0.1 (0.0-0.1) Nucleated RBCs # 0 K/uL Sodium 134 L (136-145) mmol/L Potassium 4.4 (3.5-5.1) mmol/L Chloride 99 (98-107) mmol/L Carbon Dioxide 22.9 (21.0-32.0) mmol/L BUN 21 H (7.0-18.0) mg/dL Creatinine 1.3 H (0.6-1.0) mg/dL Est Cr Clr Drug Dosing 31.41 mL/min Estimated GFR (MDRD) 40.0 ml/min Glucose 130 H (74-106) mg/dL Calcium 10.4 H (8.5-10.1) mg/dL Total Bilirubin 0.8 (0.2-1.0) mg/dL AST 54 H (15-37) IU/L ALT 79 H (14-63) IU/L Alkaline Phosphatase 217 H (46-116) U/L Total Protein 8.7 H (6.4-8.2) g/dL Albumin 4.0 (3.4-5.0) g/dL Globulin 4.7 H (2.0-3.5) g/dL Albumin/Globulin Ratio 0.9 L (1.3-2.8) Lipase 255 (73-393) U/L Urine Color YELLOW Urine Appearance SLT CLOUDY Urine pH 5.5 (5.0-8.0) Ur Specific [place] 1.020 (1.001-1.035) Urine Protein NEGATIVE (NEGATIVE) mg/dL Urine Glucose (UA) NEGATIVE (NEGATIVE) mg/dL Urine Ketones TRACE H (NEGATIVE) mg/dL Urine Occult Blood MODERATE (NEGATIVE) Urine Nitrite NEGATIVE (NEGATIVE) Urine Bilirubin NEGATIVE (NEGATIVE) Urine Urobilinogen 0.2 (<2.0) EU/dL Ur Leukocyte Esterase LARGE (NEGATIVE) Urine RBC 1-2 (0-2/HPF) Urine WBC 55-60 (0-5/HPF) Ur Epithelial Cells FEW (NONE-FEW) Urine Bacteria 4+ H (NEGATIVE) Meds: Medications Generic Name Dose Route Start Last Admin Trade Name Freq PRN Reason Stop Dose Admin Sodium Chloride 10 ml 06/03/18 15:29 Saline Flush FLUSH ASDIRECTED PRN Keep Vein Open Sodium Chloride 2.5 ml 06/03/18 15:29 Saline Flush FLUSH ASDIRECTED PRN Keep Vein Open Discontinued Medications Generic Name Dose Route Start Last Admin Trade Name Freq PRN Reason Stop Dose Admin Hyoscyamine 0.125 mg 06/03/18 15:29 06/03/18 16:50 Hyomax-Sl SL 06/03/18 15:30 0.125 mg ONETIME ONE Administration Sodium Chloride 500 mls @ 999 mls/hr 06/03/18 15:29 06/03/18 16:50 Normal Saline IV 06/03/18 15:59 999 mls/hr .Bolus ONE Administration Levofloxacin 500 mg 06/03/18 17:05 Levaquin PO 06/03/18 17:06 ONETIME ONE Ondansetron HCl 4 mg 06/03/18 15:29 06/03/18 16:50 Zofran IVPUSH 06/03/18 15:30 4 mg ONETIME ONE Administration Departure - Departure Time of Disposition: 17:14 Disposition: Home, Self-Care 01 Condition: Good Clinical Impression: Pyelonephritis - Discharge Information *PRESCRIPTION DRUG MONITORING PROGRAM REVIEWED*: No *COPY OF PRESCRIPTION DRUG MONITORING REPORT IN PATIENT CHARLEY: No Prescriptions: levoFLOXacin [Levaquin] 500 mg PO DAILY #7 tab Referrals: PCP,None [Primary Care Provider] - Forms: ED Department Discharge Additional Instructions: The following information is given to patients seen in the emergency department who are being discharged to home. This information is to outline your options for follow-up care. We provide all patients seen in our emergency department with a follow-up referral. The need for follow-up, as well as the timing and circumstances, are variable depending upon the specifics of your emergency department visit. If you don't have a primary care physician on staff, we will provide you with a referral. We always advise you to contact your personal physician following an emergency department visit to inform them of the circumstance of the visit and for follow-up with them and/or the need for any referrals to a consulting specialist. The emergency department will also refer you to a specialist when appropriate. This referral assures that you have the opportunity for follow-up care with a specialist. All of these measure are taken in an effort to provide you with optimal care, which includes your follow-up. Under all circumstances we always encourage you to contact your private physician who remains a resource for coordinating your care. When calling for follow-up care, please make the office aware that this follow-up is from your recent emergency room visit. If for any reason you are refused follow-up, please contact the [facility] Emergency Department at and asked to speak to the emergency department charge nurse. [place] daily for 7 days, increase fluids follow up with primary care. [facility] [address] [place] [address] - My Orders Last 24 Hours: My Active Orders 06/03/18 15:29 Sodium Chloride 0.9% [Saline Flush] 10 ml FLUSH ASDIRECTED PRN Sodium Chloride 0.9% [Saline Flush] 2.5 ml FLUSH ASDIRECTED PRN Saline Lock Insert [OM.PC] Stat 06/03/18 15:32 Abdomen Ltd [US] Stat - Assessment/Plan Last 24 Hours: My Active Orders 06/03/18 15:29 Sodium Chloride 0.9% [Saline Flush] 10 ml FLUSH ASDIRECTED PRN Sodium Chloride 0.9% [Saline Flush] 2.5 ml FLUSH ASDIRECTED PRN Saline Lock Insert [OM.PC] Stat 06/03/18 15:32 Abdomen Ltd [US] Stat
[2018-06-03] MEDS ORDERED: Levofloxacin 500 MG Tab PO ONE (17:05)
[2018-06-03 18:04] VITALS: BP 116/65
--- NOTE | 2018-06-05 11:11 | US ---
EXAM DATE: 06/03/18 PATIENT'S AGE: 72 Patient: MIMI BLANKENSHIP Facility: [place], [place] Site . Site : 1945 Study: US Abdomen [id number]/16/2018 4:38:18 PM Ordering Physician: Jah Garnica Final Report: INDICATION: Right upper quadrant pain. FINDINGS: Transabdominal imaging. Pancreas appears normal. Aorta is non aneurysmal. Inferior vena cava is patent. Liver is mildly diffusely echogenic and mildly heterogeneous. Normal size. No mass or cyst appreciated. Gallbladder is sonographically normal. No wall thickening or filling defect. No sonographic Escobar sign reported. Common bile duct is 5 mm at the golden hepatis. No ascites in the field of view. Mild hydronephrosis appearance in the right kidney. Somewhat lobular appearance and lower normal cortical thickness. IMPRESSION: 1. Hydronephrosis right kidney. 2. Mild steatosis of the liver. Dictated by Laron Castano MD @ Jun 03 2018 4:44PM (Electronic Signature) Report Signed by Proxy. [facility]
== END 2018-06-03 17:53 | disposition home or self-care (01) ==
LOC: MW.ED 15:04
DX: N12 Tubulo-interstitial nephritis, not specified as acute or chronic (principal); I10 Essential (primary) hypertension; E11.9 Type 2 diabetes mellitus without complications; Z88.1 Allergy status to other antibiotic agents; Z88.2 Allergy status to sulfonamides; Z88.8 Allergy status to other drugs, medicaments and biological substances; Z79.82 Long term (current) use of aspirin; Z79.84 Long term (current) use of oral hypoglycemic drugs; Z79.899 Other long term (current) drug therapy
CPT/HCPCS: 36415; 76705; 80053; 81001; 83690; 85025; 96361; 96374; 99284; A9270; J2405; J7040